=== PATIENT | male | born 1960 | race Caucasian/White ===

== ENCOUNTER 2019-03-26 20:59 | Emergency (ER) | payer MEDICAID ==
[~2019-03-26] VITALS: Ht 160 cm; Wt 86.8 kg
[2019-03-26 21:07] VITALS: Ht 160 cm; Wt 86.8 kg
[2019-03-26] MEDS ORDERED: XARELTO20 MG PO (21:08)
[2019-03-26 21:30] LABS: BASOPHILS 0.4 % (0-2); EOSINOPHILS 0.8 % (0-7); HEMATOCRIT 37.1 % (42.0-54.0); HEMOGLOBIN 12.1 g/dL (13.5-17.5); LYMPHOCYTES 23.4 % (15-50); MCH 24.1 pg (26.0-34.0); MCHC 32.6 g/dL (31.0-37.0); MCV 73.8 fL (80.0-100.0); MEAN PLATELET VOLUME 8.9 fL (7.4-10.4); MONOCYTES 8.6 % (2-11); NEUTROPHILS 65.8 % (40-80); PLATELET COUNT 324 10x3/uL (130-400); RBC 5.03 10x6/uL (4.20-6.10); RDW 18.4 % (11.5-14.5); WBC 12.6 10x3/uL (4.8-10.8)
[2019-03-26 21:34] LABS: INR 1.46 (0.85-1.17); PROTIME 17.2 SECONDS (11.6-15.0)
[2019-03-26 21:36] LABS: D-DIMER-QUANTITATIVE 0.49 ug/mLFEU (0.20-0.54)
[2019-03-26 21:43] LABS: ALBUMIN 3.3 g/dL (3.4-5.0); ALKALINE PHOSPHATASE 110 U/L (46-116); ALT (SGPT) 22 U/L (10-68); BILIRUBIN - TOTAL 0.18 mg/dL (0.2-1.3); CALC OSMOLALITY 283 mosm/kg (275-300); CALCIUM 8.8 mg/dL (8.5-10.1); CARBON DIOXIDE 26.4 mmol/L (21.0-32.0); CHLORIDE - SERUM 107 mmol/L (98-107); CREATINE KINASE 61 UL (21-232); CREATININE - SERUM 0.8 mg/dL (0.6-1.3); GLUCOSE 103 mg/dL (74-106); POTASSIUM - SERUM 3.5 mmol/L (3.5-5.1); PROTEIN - SERUM 7.4 g/dL (6.4-8.2); SODIUM 143 mmol/L (136-145); TROPONIN-I 0.018 ng/mL (0.000-0.060); UREA NITROGEN 10 mg/dL (7-18); eGFR NON AFRICAN AMERICAN > 90 mL/min (90-120)
[2019-03-27 00:11] VITALS: BP 169/83
== END 2019-03-27 00:11 | disposition home or self-care (01) ==
LOC: D.ER 20:59
PROVIDERS: Emergency Medicine
DX: M79.604 Pain in right leg (principal)

== ENCOUNTER → 2019-05-03 15:40 | Outpatient (CLI) | payer MEDICAID ==
[2019-03-26 21:07] VITALS: BMI 33.9
[~2019-05-03 15:40] MED LIST: XARELTO20 MG PO
== END | disposition home or self-care (01) ==
LOC: D.US 15:40
PROVIDERS: ATTEND Family Medicine
DX: N50.89 Other specified disorders of the male genital organs (principal)

== ENCOUNTER 2019-07-14 06:59 | Day surgery (SDC) | payer MEDICAID ==
[2019-07-13 08:46] LABS: APTT 26.5 SECONDS (22.8-39.4); INR 0.96 (0.85-1.17); PROTIME 12.3 SECONDS (11.6-15.0)
[2019-07-13 08:58] LABS: HEMATOCRIT 44.7 % (42.0-54.0); HEMOGLOBIN 15.4 g/dL (13.5-17.5); MCH 29.3 pg (26.0-34.0); MCHC 34.5 g/dL (31.0-37.0); MCV 85.1 fL (80.0-100.0); MEAN PLATELET VOLUME 9.7 fL (7.4-10.4); RBC 5.25 10x6/uL (4.20-6.10); RDW 18.3 % (11.5-14.5); WBC 6.9 10x3/uL (4.8-10.8)
[~2019-07-14] VITALS: Ht 165.1 cm; Wt 86.6 kg
[2019-07-14] MEDS ORDERED: XARELTO20 MG PO (07:09)
[2019-07-14 07:10] VITALS: BP 141/76; Ht 165.1 cm; Wt 86.6 kg
[2019-07-14] MEDS ORDERED: TYLENOL W/CODEI1 TAB PO (12:02)
--- NOTE | 2019-07-14 12:11 | OP ---
PATIENT NAME: BONIFACIO OLSON MEDICAL RECORD: [id number] LOCATION:[facility] ADMISSION DATE: SURGEON: JIM MERCHANT MD DATE OF OPERATION: 07/14/2019 SURGEON: Jim Merchant MD ANESTHESIA: General anesthesia by Lurdes Ramirez CRNA. DIAGNOSES: Left hydrocele, obstructive BPH. IPSS is 27, quality of life score is 5. Prostate size is 30 grams on digital rectal examination. PROCEDURE: Left hydrocelectomy -- Jaboulay procedure. UroLift times 4. FINDINGS: Left hydrocele with normal testicles. On cystoscopy, there was lateral lobe obstruction of the prostate with a tall bladder neck. No bladder tumors were seen. Single ureteral orifices bilaterally. SPECIMENS: Appendix, testis on the left side. BLOOD LOSS: Minimal. CLINICAL HISTORY: This is a 59-year-old male, who has difficulty voiding. He also has a large left hydrocele. He has hesitancy, weak urine flow and dribbling postvoid. His IPSS score is 27. His quality of life score is 5. 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 He is currently on Xarelto. 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 He is also a smoker. He comes today to have the UroLift procedure done. He is also going to have a left hydrocelectomy. HE IS ALLERGIC TO IRON SUPPLEMENTS. We gave him Ancef cotton factor to the OR. DESCRIPTION OF PROCEDURE: The patient was placed in supine position. He was given induction of general anesthesia. The scrotum was shaved, prepped, and draped. A midline incision about 3 cm in length was made using a #10 blade. We then went to the dartos fascia with the Bovie. The tunica vaginalis was opened up using Metzenbaum scissors. The hydrocele fluid was evacuated out. The testicle was everted out of the hemiscrotum for examination. There was a large appendix of the testicle at the upper pole of patella. This was amputated using the Bovie. This appendix was sent to pathology for identification. This is to prevent torsion of the appendix testis in the future. The tunica vaginalis was then placed behind the cord and sutured to itself using running 4-0 Vicryl. This constitutes the Jaboulay procedure. Any bleeding points were coagulated with cautery. The testicle was then placed back into his left hemiscrotum with the lateral sulcus facing laterally. The dartos fascia was then closed using a running 4-0 Vicryl. The scrotal skin was closed using simple interrupted 5-0 Monocryl. Dermabond was placed over the incision to prevent it from getting wet from the UroLift procedure. The patient was then placed into lithotomy position and reprepped and redraped. The UroLift scope was introduced. Findings are as outlined above. At 1.5 cm distal to the bladder neck at the anterolateral sulcus on each side, we placed 1 UroLift unit. This constituted 2 at the bladder neck region. This opened up the bladder neck. Then, at the level of the verumontanum at the anterolateral sulcus, we placed 1 UroLift unit on each side. This gave a wide open prostatic OPERATIVE REPORT [id number] [place] urethra. He has a total of 4 UroLift units implanted. The bladder was left partly full and then the scope was removed. This was for a voiding trial. I will see him in followup in 2 weeks' time. TRANSINT:[id number] Voice Confirmation ID: [id number] DOCUMENT ID: [id number] JIM MERCHANT MD at 1211 CC: [id number] DICTATION DATE: 07/14/19 1110 TRANSPORT PILOT: 07/14/19 1147 REG [facility] [address] [place] [address]
== END 2019-07-14 12:45 | disposition home or self-care (01) ==
LOC: D.OPS 06:59 → D.PAN 09:15 → D.OPS 11:30
PROVIDERS: Anesthesiology; ATTEND Urology
DX: N43.3 Hydrocele, unspecified (principal); N40.1 Benign prostatic hyperplasia with lower urinary tract symptoms; N13.8 Other obstructive and reflux uropathy
CPT/HCPCS: 55040; C9740

== ENCOUNTER 2019-07-16 20:42 | Emergency (ER) | payer MEDICAID ==
[~2019-07-16] VITALS: Ht 165.1 cm; Wt 86.8 kg
[~2019-07-16 20:42] MED LIST changes: +TYLENOL W/CODEI1 TAB PO
[2019-07-16 21:05] VITALS: Ht 165.1 cm; Wt 86.8 kg
[2019-07-16 21:30] LABS: BASOPHILS 0.6 % (0-2); EOSINOPHILS 1.6 % (0-7); HEMATOCRIT 44.5 % (42.0-54.0); HEMOGLOBIN 15.6 g/dL (13.5-17.5); IMMATURE GRANULOCYTES 0.2 % (0-5); LYMPHOCYTES 23.2 % (15-50); MCH 29.5 pg (26.0-34.0); MCHC 35.1 g/dL (31.0-37.0); MCV 84.3 fL (80.0-100.0); MEAN PLATELET VOLUME 9.2 fL (7.4-10.4); MONOCYTES 7.1 % (2-11); NEUTROPHILS 67.3 % (40-80); PLATELET COUNT 233 10x3/uL (130-400); RBC 5.28 10x6/uL (4.20-6.10); RDW 17.7 % (11.5-14.5); WBC 8.5 10x3/uL (4.8-10.8)
[2019-07-16 22:03] LABS: ALBUMIN 3.7 g/dL (3.4-5.0); ALKALINE PHOSPHATASE 115 U/L (46-116); ALT (SGPT) 26 U/L (10-68); BILIRUBIN - TOTAL 0.49 mg/dL (0.2-1.3); CALC OSMOLALITY 270 mosm/kg (275-300); CALCIUM 8.8 mg/dL (8.5-10.1); CARBON DIOXIDE 27.2 mmol/L (21.0-32.0); CHLORIDE - SERUM 102 mmol/L (98-107); CREATININE - SERUM 0.8 mg/dL (0.6-1.3); GLUCOSE 92 mg/dL (74-106); POTASSIUM - SERUM 3.8 mmol/L (3.5-5.1); PROTEIN - SERUM 7.6 g/dL (6.4-8.2); SODIUM 136 mmol/L (136-145); UREA NITROGEN 9 mg/dL (7-18); eGFR NON AFRICAN AMERICAN > 90 mL/min (90-120)
[2019-07-16] MEDS ORDERED: ANALPRAM HC 2.530 GM RC (22:59)
[2019-07-16 23:04] LABS: APPEARANCE CLEAR (CLEAR); BILIRUBIN NEGATIVE (NEGATIVE); COLOR YELLOW (YELLOW); GLUCOSE NEGATIVE (NEGATIVE); KETONE NEGATIVE (NEGATIVE); NITRITE NEGATIVE (NEGATIVE); PROTEIN NEGATIVE (NEGATIVE); SPECIFIC GRAVITY 1.005 (1.005-1.020); UROBILINOGEN NORMAL (NORMAL)
[2019-07-16 23:05] LABS: EPITHELIAL CELLS 0-5 /hpf (0-5); WHITE CELLS - URINE 0-5 /hpf (0-5)
[2019-07-16 23:30] VITALS: BP 146/75
== END 2019-07-16 23:30 | disposition home or self-care (01) ==
LOC: D.ER 20:42
PROVIDERS: Family Medicine
DX: K64.9 Unspecified hemorrhoids (principal); K92.1 Melena; F17.210 Nicotine dependence, cigarettes, uncomplicated

== ENCOUNTER → 2019-07-27 18:56 | Outpatient (CLI) | payer MEDICAID ==
[2019-07-16 21:05] VITALS: BMI 31.8
[~2019-07-27 18:56] MED LIST changes: +ANALPRAM HC 2.530 GM RC
== END | disposition home or self-care (01) ==
LOC: D.LABREF 18:56
PROVIDERS: ATTEND Urology
DX: R31.9 Hematuria, unspecified (principal)